=== PATIENT | female | born 1975 | race Caucasian/White ===

== ENCOUNTER 2018-03-26 09:11 | Emergency (ER) | payer SELFPAY ==
[2018-03-26 09:18] VITALS: BP 118/78
--- NOTE | 2018-03-26 11:22 | UC ---
Mckay Ramirez Gabriel, scribed for Gil Baird MD on 03/26/18 at 0926 . Dental HPI - HPI Summary HPI Summary: This patient is a 42 year old F presenting to [facility] with a chief complaint of left sided face and neck pain that has gotten worse today. Two weeks ago the patient got a crown placed on her upper left molar and it was doing fine until 2 days ago. At this point the patient began having left sided facial pain. The patient denies post nasal drip and sinus congestion. The patient rates the pain 4/10 in severity. - History of Current Complaint Chief Complaint: UCRespiratory Stated Complaint: SINUS PAIN Hx Obtained From: Patient Hx Last Menstrual Period: 07/17/16 ?: No Onset/Duration: Still Present Severity: Moderate Pain Intensity: 4 Pain Scale Used: 0-10 Numeric - Allergies/Home Medications Allergies/Adverse Reactions: Allergies Allergy/AdvReac Type Severity Reaction Status Date / Time No Known Allergies Allergy Verified 03/26/18 09:18 PMH/Surg Hx/FS Hx/Imm Hx Other History Of: Negative For: Hepatitis C, Anticoagulant Therapy - Surgical History Surgical History: None - Family History Known Family History: Negative: Hypertension, Respiratory Disease, Seizure Disorder - Social History Alcohol Use: Occasionally Substance Use Type: None Smoking Status (MU): Former Smoker When Did the Patient Quit Smoking/Using Tobacco: 12 years ago Review of Systems Constitutional: Negative - fever ENT: Negative - post nasal drip and sinus congestion Musculoskeletal: Other: - left sided facial pain and neck pain All Other Systems Reviewed And Are Negative: Yes Physical Exam - Summary Physical Exam Summary: VITAL SIGNS: Reviewed. GENERAL: Patient is a well-developed and nourished female who is lying comfortable in the stretcher. Patient is not in any acute respiratory distress. HEAD AND FACE: the patient is TTP in the left side of the face EYES: PERRLA, EOMI x 2. EARS: Hearing grossly intact. MOUTH: Oropharynx within normal limits. NECK: Supple, trachea is midline, no adenopathy, no JVD, no carotid bruit. CHEST: Symmetric, no tenderness at palpation LUNGS: Clear to auscultation bilaterally. No wheezing or crackles. CVS: Regular rate and rhythm, S1 and S2 present, no murmurs or gallops appreciated. ABDOMEN: Soft, non-tender. Bowel sounds are normal. No abdominal abnormal pulsations. EXTREMITIES: Full ROM in all major joints, no edema, no cyanosis or clubbing. NEURO: Alert and oriented x 3. No acute neurological deficits. Speech is normal and follows commands. SKIN: Dry and warm Triage Information Reviewed: Yes Vital Signs: Initial Vital Signs Temp 97.6 F 03/26/18 09:15 Pulse 104 03/26/18 09:15 Resp 18 03/26/18 09:15 BP 118/78 03/26/18 09:15 Pulse Ox 99 03/26/18 09:15 Vital Signs Reviewed: Yes Dental Complaint Course/Dx - Course Course Of Treatment: At this time there is no sinusitis, ear pain, or pharyngitis. I believe the pain may be due to from the tooth and the patient will be placed on abx and follow up with her dentist HARSHA. I discussed all the findings with the patient. Patient was instructed to return to the urgent care or go to ER immediately if any of the symptoms return or worsens. Plan of care was discussed with the patient, and patient understands and agrees. All questions were answered to patient satisfaction. There were no further complaints or concerns. - Differential Dx/Diagnosis Provider Diagnoses: toothache Discharge - Sign-Out/Discharge Documenting (check all that apply): Discharge/Admit/Transfer - Discharge Plan Condition: Stable Disposition: HOME Prescriptions: Amoxicillin PO (*) [Amoxicillin 875 MG (*)] 875 mg PO BID #20 tab Patient Education Materials: Toothache (ED) Referrals: Aime Begum MD [Primary Care Provider] - Additional Instructions: Take medications as instructed Increase your fluid intake Return to the UC if symptoms worsen The documentation as recorded by the Mckay ibarra Gabriel accurately reflects the service I personally performed and the decisions made by , Gil Baird MD.
== END 2018-03-26 09:32 | disposition home or self-care (01) ==
LOC: UCEAST 09:11
DX: K08.89 Other specified disorders of teeth and supporting structures (principal); M54.2 Cervicalgia; Z87.891 Personal history of nicotine dependence
CPT/HCPCS: 99212; G0463

== ENCOUNTER 2018-06-30 15:42 | Emergency (ER) | payer SELFPAY ==
[2018-06-30 16:24] VITALS: BP 132/81
--- NOTE | 2018-06-30 17:04 | ED ---
Throat Pain/Nasal Congestion - HPI Summary HPI Summary: Pt presents w/ Lt upper molar pain w/ what she believes is infection x 1 month. She had dental work done 1 month ago and since, she's been having issues with this tooth. Pain, swelling and discharge. She'e been able to keep this at bay with ibuprofen but feels swelling and drainage are worse today. Denies fever, chills, neck pain or stiffness, headache, difficulty swallowing or breathing, nausea or vomiting. She still able to eat and drink. - History of Current Complaint Chief Complaint: UCDentalProblem Time Seen by Provider: 06/30/18 16:45 Hx Obtained From: Patient - Allergies/Home Medications Allergies/Adverse Reactions: Allergies Allergy/AdvReac Type Severity Reaction Status Date / Time No Known Allergies Allergy Verified 06/30/18 16:24 PMH/Surg Hx/FS Hx/Imm Hx Previously Healthy: Yes Endocrine/Hematology History: Denies: Hx Anticoagulant Therapy, Autoimmune Disease Cardiovascular History: Denies: Hx Valvular Heart Disease Infectious Disease History: No Infectious Disease History: Denies: Traveled Outside the [place] in Last 30 Days - Family History Known Family History: Negative: Hypertension, Respiratory Disease, Seizure Disorder - Social History Occupation: Employed Full-time Alcohol Use: Occasionally Hx Substance Use: No Substance Use Type: Reports: None Hx Tobacco Use: Yes - not currently Smoking Status (MU): Former Smoker Review of Systems Constitutional: Negative Negative: Fever, Chills, Fatigue Eyes: Negative Negative: Photophobia, Blurred Vision, Diplopia, Drainage, Erythema Positive: Dental Pain. Negative: Sore Throat, Ear Ache, Nasal Discharge Gastrointestinal: Negative Positive: no symptoms reported Musculoskeletal: Negative Skin: Negative Neurological: Negative Psychological: Normal All Other Systems Reviewed And Are Negative: Yes Physical Exam Triage Information Reviewed: Yes Vital Signs On Initial Exam: Initial Vitals Temp Pulse Resp BP Pulse Ox 97.8 F 72 18 132/81 100 06/30/18 16:22 06/30/18 16:22 06/30/18 16:22 06/30/18 16:22 06/30/18 16:22 Vital Signs Reviewed: Yes Appearance: Positive: Well-Appearing, No Pain Distress, Well-Nourished, Pain Distress - mild Skin: Positive: Warm, Skin Color Reflects Adequate Perfusion, Dry - no erythema , no ecchymosis of face/neck Head/Face: Positive: Normal Head/Face Inspection Eyes: Positive: Normal, EOMI, Conjunctiva Clear. Negative: Conjunctiva Inflammed, Discharge ENT: Positive: Normal ENT inspection, Hearing grossly normal, Pharynx normal, TMs normal. Negative: Nasal congestion, Nasal drainage Dental: Negative: Gross Decay/Caries @ - #15 with mild edema about the buccal gingiva - no inocencio erythema or d/c - TTP - tooth appears to be intact w/ minimal decay at the uppermost borders. Neck: Positive: Supple, Nontender, No Lymphadenopathy Respiratory/Lung Sounds: Positive: Breath Sounds Present. Negative: Stridor Cardiovascular: Positive: Normal Musculoskeletal: Positive: Normal, Strength/ROM Intact Neurological: Positive: Normal, Sensory/Motor Intact, Alert, Oriented to Person Place, Time, CN Intact II-III Psychiatric: Positive: Anxious Diagnostics - Vital Signs Vital Signs Temp Pulse Resp BP Pulse Ox 06/30/18 16:22 97.8 F 72 18 132/81 100 - Laboratory Lab Statement: Any lab studies that have been ordered have been reviewed, and results considered in the medical decision making process. EENT Course/Dx - Diagnoses Provider Diagnoses: Dental infection Discharge - Sign-Out/Discharge Documenting (check all that apply): Patient Departure All imaging exams completed and their final reports reviewed: No Studies - Discharge Plan Condition: Stable Disposition: HOME Prescriptions: Amoxicillin PO (*) [Amoxicillin 500 MG CAP*] 500 mg PO TID #30 cap Patient Education Materials: Dental Abscess (ED), Toothache (ED) Referrals: Aime Begum MD [Primary Care Provider] - Additional Instructions: Complete antibiotics - take probiotics in between doses to prevent diarrhea, yeast infection You may try warm salt water rinses and warm compresses to encourage drainage Continue ibuprofen alternating with acetaminophen as needed for pain (take with food) Stay hydrated with liquids and do not chew on this side - rinse well after eating to clear food from mouth/crevices Follow-up with dentist. If you do not have one, a local dentist who works on crowns has been listed below. *If in the meantime you develop acute facial or neck swelling, fever or difficulty breathing or swallowing, go to the ED Dr. Chinchilla, [facility] [address] [place] [address] - Billing Disposition and Condition Condition: STABLE Disposition: Home
== END 2018-06-30 17:12 | disposition home or self-care (01) ==
LOC: UCEAST 15:42
DX: K04.7 Periapical abscess without sinus (principal); Z87.891 Personal history of nicotine dependence
CPT/HCPCS: 99212; G0463